=== PATIENT | male | born 1940 | race Caucasian/White ===

== ENCOUNTER 2021-02-03 09:05 | Day surgery (SDC) | payer MEDICARE, BC ==
[~2021-02-03] VITALS: Ht 177.8 cm; Wt 81.8 kg
[~2021-02-03 09:05] MED LIST: CITA20TA28 PO; LOSA1TAB3 PO; MONT10TA21 PO; NOR5T PO; POTA10TA84 PO; PSEU-259 PO; TIOT18CA7 IH
[2021-02-03 09:30] VITALS: BP 148/78
[2021-02-03] MEDS ORDERED: fentaNYL/PF 50MCG/1 ML 2ML syringe ONE (09:37)
[2021-02-03] MEDS ORDERED: MIDAZolam 1 MG/ML 5ML VIAL ONE ×2 (09:37)
[2021-02-03] MEDS ORDERED: SPIR25TA5 PO (10:05)
[2021-02-03] MEDS ORDERED: NIFE90TA44 PO (10:05)
[2021-02-03] MEDS ORDERED: PANT-47 PO (10:07)
[2021-02-03] MEDS ORDERED: BUDE0.5A11 NEB (10:08)
[2021-02-03 11:24] VITALS: BP 128/71
[2021-02-03 11:34] VITALS: BP 127/74
[2021-02-03 11:44] VITALS: BP 129/70
[2021-02-03 11:54] VITALS: BP 123/70
== END 2021-02-03 12:15 | disposition home or self-care (01) ==
LOC: GI LAB 09:05
PROVIDERS: ATTEND Internal Medicine Gastroenterology
DX: R19.5 Other fecal abnormalities (principal); K62.1 Rectal polyp; K62.0 Anal polyp; K57.30 Diverticulosis of large intestine without perforation or abscess without bleeding
CPT/HCPCS: 45380; 45385; G0500; J2250; J3010; J7040; 88305; 99152; 99153; A4620